=== PATIENT | female | born 1990 | race Caucasian/White ===

== ENCOUNTER 2020-06-28 16:32 | Emergency (ER) | payer OTHER ==
--- NOTE | 2020-06-28 17:21 | CR ---
Chest: 2 views of the chest were obtained. Comparison: No prior chest imaging is available. Heart size and mediastinum are normal. Lungs are clear with no acute parenchymal change. No pneumothorax is seen. Bony structures show nothing acute. Impression: 1. Nothing acute is appreciated on 2 view chest x-ray. Diagnostic code #1 Study was dictated in MDT
--- NOTE | 2020-06-28 17:21 | CR ---
Right shoulder: 3 views of the right shoulder were obtained. Comparison: No prior shoulder study. Glenohumeral joint and acromioclavicular joint appears within normal limits. No fracture, dislocation or other bony abnormality is appreciated. Impression: 1. No abnormality is appreciated on 3 view right shoulder study. Diagnostic code #1 Study was dictated in MDT
--- NOTE | 2020-06-28 17:25 | CT ---
CT cervical spine Technique: Multiple axial sections were obtained from above C1 inferiorly to the bottom of T1. Reconstructed sagittal and coronal images were reviewed. Findings: Vertebral body heights and disc spaces are maintained. Vertebral bodies and posterior arches are intact with no fracture being seen. No bony central or bony neural foraminal stenosis is seen. No subluxation is seen. Impression: 1. Nothing acute is appreciated on CT study of the cervical spine. Diagnostic code #1 Study was dictated in MDT
--- NOTE | 2020-06-28 17:26 | CT ---
Head CT Technique: Multiple axial sections through the brain were obtained. Intravenous contrast was not utilized. Comparison: No prior intracranial imaging is available. Findings: Ventricles along with basal cisterns and sulci over the convexities are within normal limits for the patient's age. No abnormal parenchymal densities are seen. No evidence of intracranial hemorrhage. No midline shift or mass effect is seen. Visualized paranasal sinuses shows air-fluid level within the right maxillary and opacified upper left maxillary sinus. Fracture is partially visualized within the posterior right maxillary sinus. Mucosal thickening is is seen within the right sphenoid sinus. Fracture noted within the right zygomatic arch in [address] Zygomatic arch fracture noted to extend into the right temporomandibular fossa. No calvarial fracture is seen. Impression: 1. Facial bone fractures which will be more completely described on facial CT exam. 2. No acute intracranial abnormality is appreciated. Diagnostic code #3 Study was dictated in MDT
--- NOTE | 2020-06-28 17:31 | CT ---
CT facial bones Technique: Multiple axial sections through the facial bones were obtained. Reconstructed coronal and sagittal images were obtained. Findings: Nondisplaced fractur is e noted within the anterior right maxillary sinus as well as slightly displaced fracture within the posterior right maxillary sinus. Fractures are seen in 3 places within the right zygomatic arch. Minimal inward displacement noted of the anterior fracture line. Posterior fracture line extends into the right temporomandibular joint. Fracture is noted within the lateral right orbital wall near the orbital apex with mild displacement. Inferior orbital floor fracture is seen involving the lateral aspect of the orbital floor with downward displacement by about 4 mm. Fracture is noted within the anterior right temporal bone with intracranial extension. No left-sided facial fracture is appreciated. Air-fluid level seen within the right maxillary sinus most likely blood. Mucosal thickening is is seen causing near-complete opacification of the left maxillary sinus which could relate to prior trauma as well as chronic sinus disease. Mucosal thickening seen within a portion of right sphenoid sinus which could relate to chronic sinus disease. Impression: 1. Fractures within the anterior and posterior maxillary wall, right zygomatic arch, lateral right orbital wall near the orbital apex and within the anterior right temporal bone with intracranial extension. Inferior right orbital floor fracture is also noted. 2. Fluid within the right maxillary sinus most likely representing blood. 3. Near complete opacification left maxillary sinus and lesser mucosal thickening within the right sphenoid sinus possibly due to pre-existing chronic sinusitis. Diagnostic code #3 Study was dictated in MDT
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
[2020-06-28] MEDS ORDERED: Diphtheria,Pertussis(Acell),Tetanus Vaccine 0.5 ML Syringe IM ONE (18:30)
== END 2020-06-28 18:40 | disposition home or self-care (01) ==
LOC: JD.ED 16:32
DX: S02.40EA Zygomatic fracture, right side, initial encounter for closed fracture (principal); S02.40CA Maxillary fracture, right side, initial encounter for closed fracture; S02.19XA Other fracture of base of skull, initial encounter for closed fracture; S02.31XA Fracture of orbital floor, right side, initial encounter for closed fracture; S01.111A Laceration without foreign body of right eyelid and periocular area, initial encounter; Z23 Encounter for immunization; V58.5XXA Driver of pick-up truck or van injured in noncollision transport accident in traffic accident, initial encounter
CPT/HCPCS: 70450; 70450-26; 70486; 70486-26; 71046; 71046-26; 72125; 72125-26; 73030-26-RT; 73030-RT; 90471; 90715; 99283; 99284-25